=== PATIENT | female | born 1970 | race Two or more races ===

== ENCOUNTER 2017-04-10 09:12 | Emergency (ER) | payer OTHER ==
[2017-04-10 09:21] VITALS: BP 135/91; PULSE 103; TEMP 98.8; BMI 26.6
[2017-04-10] MEDS ORDERED: KETOROLAC TROMETHAMINE 60 MG/2 ML VIAL IM ONE (10:53)
--- NOTE | 2017-04-10 10:58 | PDOC ---
"History of Present Illness - General Chief Complaint: Back Pain Stated Complaint: BACK PAIN Time Seen by Provider: 04/10/17 10:14 History Source: Patient Exam Limitations: No Limitations - History of Present Illness Initial Comments: 04/10/17 12:33 Chief complaint: Left lateral lower back pain radiating down left legs 4 days History of present illness: Patient is a 46-year-old female with a history of xsi-ovlriji-[id number] diabetes and lower back problems. Patient reports for the last 4 days she has had left lower back pain that radiates down her left leg with tingling along her left lateral hip area. Patient denies any incontinency or any saddle anesthesia. Patient reports going to the chiropractor 3 times without relief of pain. Patient took ibuprofen last night without relief of pain and nothing today for pain. Patient denies any heavy lifting or exercise recently. Occurred: reports: other (4 days ) Severity: reports: severe (left sided radiates down left leg ) Pain Location: reports: back (left sided radiates down left leg ), lower extremity (left leg) Method of Injury: Yes: unknown Modifying Factors: improves with: None Loss of Consciousness: no loss of consciousness Associated Symptoms (Fall): other (tingling left lateral thigh ) Past History - Past Medical History Allergies/Adverse Reactions: Allergies Allergy/AdvReac Type Severity Reaction Status Date / Time centimizoil Allergy Uncoded 04/10/17 09:14 Home Medications: Ambulatory Orders Glipizide [Glipizide ER] 5 mg PO DAILY 04/10/17 Metformin HCl [Glucophage] 1,000 mg PO BID 04/10/17 Oxycodone HCl/Acetaminophen [Percocet 5-325 mg Tablet] 1 tab PO Q6H PRN #12 tablet MDD 4 04/10/17 Diabetes: Yes Other medical history: sciatica - Immunization History Immunization Up to Date: Yes - Psycho/Social/Smoking Cessation Hx Anxiety: No Suicidal Ideation: No Smoking History: Never smoked Have you smoked in the past 12 months: No Information on smoking cessation initiated: No Hx Alcohol Use: No Drug/Substance Use Hx: No Substance Use Type: None Review of Systems - Review of Systems Able to Perform ROS?: Yes Constitutional: No: Symptoms Reported HEENTM: No: Symptoms Reported Respiratory: No: Symptoms reported Cardiac (ROS): No: Symptoms Reported ABD/GI: No: Symptoms Reported : No: Symptoms Reported Musculoskeletal: Yes: Back Pain (left sided radiates down left leg ) Integumentary: No: Symptoms Reported Neurological: No: Symptoms reported *Physical Exam - Vital Signs Last Vital Signs Temp Pulse Resp BP Pulse Ox 98.8 F 103 H 18 135/91 100 04/10/17 09:15 04/10/17 09:15 04/10/17 09:15 04/10/17 09:15 04/10/17 09:15 - Physical Exam General Appearance: Yes: Appropriately Dressed Respiratory/Chest: positive: Lungs Clear, Normal Breath Sounds. negative: Chest Tender, Respiratory Distress Cardiovascular: positive: Regular Rhythm, Regular Rate, S1, S2 Vascular Pulses: Doralis-Pedis (L): 4+ Musculoskeletal: positive: Normal Inspection, Decreased Range of Motion (from waist ), Other (left paraspinal muscle tenderness lumbar). negative: CVA Tenderness, CVA Tenderness (R), CVA Tenderness (L), Muscle Spasm, Vertebral Tenderness Extremity: positive: Normal Capillary Refill, Normal Inspection. negative: Normal Range of Motion (decreased left leg ) Integumentary: positive: Normal Color Neurologic: positive: Normal Response, Respond to painful stimul (left leg ), Other (+ SLR at 30 degrees left ). negative: Motor Strength 5/5 (motor/ strenght left 4/4), Numbness, Sensory Deficit (left leg ) Deep Tendon Reflexes: Ankle (L): 4+, Knee (R): 4+ ED Treatment Course - RADIOLOGY Radiology Studies Ordered: Category Date Time Status SPINE-LUMBAR SACRAL [RAD] Stat Radiology 04/10/17 10:54 Ordered Medical Decision Making - Medical Decision Making 04/10/17 12:36 Patient is a 46-year-old female with a history of rtv-[id number]-qtttkxysx diabetes and lower back problems. Patient reports for the last 4 days she has had left lower back pain that radiates down her left leg with tingling along her left lateral hip area. Patient denies any incontinency or any saddle anesthesia. Patient reports going to the chiropractor 3 times without relief of pain. Patient took ibuprofen last night without relief of pain and nothing today for pain. Patient denies any heavy lifting or exercise recently. Left lumbar radiculopathy PLAN: toradol 60 mg IM now ortho to follow up with xray lumbar sacral spine degenerative changes mild with minimal wedging percocet 5mg/325 mg po every 6 hrs prn severe pain [employer]GER checked Patient Search Multi-Patient Search Reports Drug Listing Designation My LOBITO Numbers Data Detail Level: Printer-Friendly View Extended View Confidential Drug Utilization Report Search Terms: bridger vera, 1970 Search Date: 04/10/2017 12:42:08 PM The Drug Utilization Report below displays all of the controlled substance prescriptions, if any, that your patient has filled in the last twelve months. The information displayed on this report is compiled from pharmacy submissions to the Department, and accurately reflects the information as submitted by the pharmacies. This report was requested by: Lorene Castellanos | Reference #: [id number] 04/10/17 12:42 04/10/17 13:26 04/10/17 13:27 04/10/17 13:27 *DC/Admit/Observation/Transfer Diagnosis at time of Disposition: Lumbar pain with radiation down left leg - Discharge Dispostion Disposition: HOME Condition at time of disposition: Stable - Prescriptions Prescriptions: Oxycodone HCl/Acetaminophen [Percocet 5-325 mg Tablet] 1 tab PO Q6H PRN #12 tablet MDD 4 PRN Reason: Pain - Referrals Referrals: Adeline Jackson NP [Primary Care Provider] - Deonte Duckworth MD [Staff Physician] - - Patient Instructions Additional Instructions: FOLLOW UP WITH ORTHOPEDIST SOON POSSIBLE AVOID ANY STRENOUS ACTIVITIES OR EXERCISE RETURN TO EMERGENCY ROOM IF ANY NUMBNESS OF LEGS OR PRIVATE AREA OR NEW SYMPTOMS DEVELOP PATIENT VOICED UNDERSTANDING OF DISCHARGE INSTRUCTIONS AND ALL QUESTIONS WERE ANSWERED"
== END 2017-04-10 12:48 | disposition home or self-care (01) ==
LOC: JERFT 09:12 → JER 09:12 → JERFT 12:48
PROC: 3E0233Z Introduction of Anti-inflammatory into Muscle, Percutaneous Approach (ICD-10-PCS; principal; 2017-04-10)
DX: M54.16 Radiculopathy, lumbar region (principal); E11.9 Type 2 diabetes mellitus without complications; Z79.84 Long term (current) use of oral hypoglycemic drugs
CPT/HCPCS: 72100-TC; 99281-25

== ENCOUNTER 2017-04-11 09:18 | Emergency (ER) | payer OTHER ==
[2017-04-11 09:34] VITALS: BP 139/82; PULSE 84; TEMP 98.7; BMI 26.6
--- NOTE | 2017-04-11 09:45 | PDOC ---
History of Present Illness - General History Source: Patient Exam Limitations: No Limitations - History of Present Illness Initial Comments: 04/11/17 10:46 Patient is a 46 year old female with a significant past medical history of Diabetes who presents to the ED with pain in left lower extremity and left hip pain for 4 days. Patient reports pain beginning 4 days prior constantly, with intensity increasing last night before coming in to the ED. She reports slight numbness in her left lower extremity. Patient reports being diagnosed with sciatica 3 years prior by a chiropractor. She states being prescribed percocets for the pain but stopped taking them secondary to nausea and vomiting. Patient was given Toradol IM at [facility] yesterday for pain. She reports not being compliant with diabetic medication secondary to nausea and vomiting. Denies any new injury. Denies dysuria, or constipation. Denies any fever, chills. Denies any chest pain, SOB, dizziness. Denies any other symptoms. Allergies: N/A PMD: Dr. Jackson <Antony Mcguire - Last Filed: 04/11/17 10:46> <Giana Arias - Last Filed: 04/11/17 11:00> - General Chief Complaint: Pain, Acute Stated Complaint: REVISIT, PAIN Time Seen by Provider: 04/11/17 09:44 Past History <Antony Mcguire - Last Filed: 04/11/17 10:46> - Past Medical History Diabetes: Yes - Immunization History Immunization Up to Date: Yes - Psycho/Social/Smoking Cessation Hx Anxiety: No Suicidal Ideation: No Smoking History: Never smoked Have you smoked in the past 12 months: No Hx Alcohol Use: No Drug/Substance Use Hx: No Substance Use Type: None <Giana Arias - Last Filed: 04/11/17 11:00> - Past Medical History Allergies/Adverse Reactions: Allergies Allergy/AdvReac Type Severity Reaction Status Date / Time No Known Drug Allergies Allergy Verified 04/11/17 10:30 Home Medications: Ambulatory Orders Glipizide [Glipizide ER] 5 mg PO DAILY 04/10/17 Metformin HCl [Glucophage] 1,000 mg PO BID 04/10/17 Cyclobenzaprine HCl [Flexeril 10 mg] 10 mg PO BID PRN #60 tablet 04/11/17 Ibuprofen [Motrin -] 600 mg PO TID PRN #15 tablet 04/11/17 Review of Systems - Review of Systems Able to Perform ROS?: Yes Comments:: 04/11/17 10:47 GENERAL/CONSTITUTIONAL: No fever or chills. No weakness. HEAD, EYES, EARS, NOSE AND THROAT: No change in vision. No ear pain or discharge. No sore throat. GASTROINTESTINAL: No nausea, vomiting, diarrhea or constipation. GENITOURINARY: No dysuria, frequency, or change in urination. CARDIOVASCULAR: No chest pain or shortness of breath. RESPIRATORY: No cough, wheezing, or hemoptysis. MUSCULOSKELETAL: + Paraspinal pain. +Left buttock pain. No joint or muscle swelling or pain. No neck or back pain. SKIN: No rash NEUROLOGIC: No headache, vertigo, loss of consciousness, or change in strength/ sensation. ENDOCRINE: No increased thirst. No abnormal weight change. HEMATOLOGIC/LYMPHATIC: No anemia, easy bleeding, or history of blood clots. ALLERGIC/IMMUNOLOGIC: No hives or skin allergy. All Other Systems: Reviewed and Negative <Antony Mcguire - Last Filed: 04/11/17 10:46> *Physical Exam - Vital Signs Last Vital Signs Temp Pulse Resp BP Pulse Ox 98.7 F 84 19 139/82 99 04/11/17 09:31 04/11/17 09:31 04/11/17 09:31 04/11/17 09:31 04/11/17 09:31 - Physical Exam Comments: 04/11/17 10:48 GENERAL: Awake, alert, and fully oriented, in no acute distress HEAD: No signs of trauma EYES: PERRLA, EOMI, sclera anicteric, conjunctiva clear ENT: Auricles normal inspection, hearing grossly normal, nares patent, oropharynx clear without exudates. Moist mucosa NECK: Normal ROM, supple, no lymphadenopathy, JVD, or masses LUNGS: Breath sounds equal, clear to auscultation bilaterally. No wheezes, and no crackles HEART: Regular rate and rhythm, normal S1 and S2, no murmurs, rubs or gallops ABDOMEN: Soft, nontender, normoactive bowel sounds. No guarding, no rebound. No masses EXTREMITIES: + Positive straight left leg raise test at 10 degrees. Negative right leg raise test. + Left paraspinal and left buttock reproduced pain. Normal range of motion, no edema. No clubbing or cyanosis. No cords, erythema, NEUROLOGICAL: Cranial nerves II through XII grossly intact. Normal speech, normal gait. No limping. SKIN: Warm, Dry, normal turgor, no rashes or lesions noted. <Antony Mcguire - Last Filed: 04/11/17 10:46> - Vital Signs Last Vital Signs Temp Pulse Resp BP Pulse Ox 98.7 F 84 19 139/82 99 04/11/17 09:31 04/11/17 09:31 04/11/17 09:31 04/11/17 09:31 04/11/17 09:31 <Giana Arias - Last Filed: 04/11/17 11:00> ED Treatment Course - ADDITIONAL ORDERS Additional order review: Laboratory Results 04/11/17 04/11/17 10:27 10:13 POC Glucometer [id number] Urine HCG, Qual Negative 04/11/17 10:27 POC Glucometer [id number] - Medications Given in the ED: ED Medications Discontinued Medications Generic Name Dose Route Start Last Admin Trade Name Alconq PRN Reason Stop Dose Admin Acetaminophen 975 mg 04/11/17 10:06 04/11/17 10:23 Tylenol - PO 04/11/17 10:07 975 mg ONCE ONE Administration Ketorolac Tromethamine 60 mg 04/11/17 10:06 04/11/17 10:22 Toradol Injection - IM 04/11/17 10:07 60 mg ONCE ONE Administration Ondansetron HCl 4 mg 04/11/17 10:06 04/11/17 10:23 Zofran Odt - SL 04/11/17 10:07 4 mg ONCE ONE Administration <Antony Mcguire - Last Filed: 04/11/17 10:46> Medical Decision Making - Medical Decision Making 04/11/17 10:18 46yo female with hx of sciatica with acute flare up of sciatica x 4 days. -given toradol yesterday with relief of pain, however returns today secondary to vomiting from percocet and unable to tolerate po -no signs/symptoms of caude equina - no urinary or fecal incontinence, no muscle weakness, no sensory changes -no midline pain -xray from yesterday reviewed. -will remedicate and reassess -pt follows with chiropractor, will need to see ortho for further eval and poss PT as outpt for back pain. -will check UA given hx of DM and now with mild suprapubic ttp, though doubt pyelo as cause of pain bc no CVA ttp and pt is nontoxic/no fevers 04/11/17 10:52 re-eval: pt ambulatory with a steady gait. sleeping, easily arousable. denies pain. no paresthesias or sensation changes. able to give urine sample. Has a referral to see ortho from yesterday. Will give Rx for muscle relaxer and motrin for home. 04/11/17 10:58 pt stable for d/c to home. Pt took own DM meds while in the ED - metformin and glipizide. Pt tolerated PO intake in the ED. <Giana Arias - Last Filed: 04/11/17 11:00> *DC/Admit/Observation/Transfer - Attestations Scribe Attestion: 04/11/17 10:49 Documentation prepared by Antony Mcguire, acting as medical practice assistant for Giana Arias DO, MD. <Antony Mcguire - Last Filed: 04/11/17 10:46> - Discharge Dispostion Admit: No - Attestations Physician Attestion: 04/11/17 10:21 I, Dr. Giana Arias DO, attest that this document has been prepared under my direction and personally reviewed by me in its entirety. I further attest, that it accurately reflects all work, treatment, procedures and medical decision -making performed by me. <Giana Arias - Last Filed: 04/11/17 11:00> Diagnosis at time of Disposition: Low back pain Qualifiers: Chronicity: unspecified Back pain laterality: left Sciatica presence: unspecified whether sciatica present Qualified Code(s): M54.5 - Low back pain - Discharge Dispostion Disposition: HOME Condition at time of disposition: Stable - Prescriptions Prescriptions: Cyclobenzaprine HCl [Flexeril 10 mg] 10 mg PO BID PRN #60 tablet PRN Reason: Back Pain Ibuprofen [Motrin -] 600 mg PO TID PRN #15 tablet PRN Reason: Lower Back Pain - Referrals Referrals: Adeline Jackson NP [Primary Care Provider] - Pro Fierro MD [Staff Physician] - - Patient Instructions Printed Discharge Instructions: DI for Low Back Pain Additional Instructions: Please take all meds as prescribed. Please do not drive or operate heavy machinery while taking flexeril. Please return to the ED with any further concerns. Please follow up with your PMD and make an appointment to see orthopedics.
[2017-04-11] MEDS ORDERED: LIDOCAINE 5% TOPICAL PATCH TP ONE (10:06)
[2017-04-11] MEDS ORDERED: ONDANSETRON *ODT* 4 MG TABLET SL ONE (10:06)
[2017-04-11] MEDS ORDERED: ACETAMINOPHEN 325 MG TABLET (FP) PO ONE (10:06)
[2017-04-11] MEDS ORDERED: KETOROLAC TROMETHAMINE 60 MG/2 ML VIAL IM ONE (10:06)
[2017-04-11 10:34] LABS: URINE APPEARANCE CLEAR; URINE BILIRUBIN NEGATIVE (NEGATIVE); URINE BLOOD NEGATIVE (NEGATIVE); URINE COLOR LTYELLOW; URINE GLUCOSE (UA) 1+ (NEGATIVE); URINE KETONE NEGATIVE (NEGATIVE); URINE LEUK ESTERASE NEGATIVE (NEGATIVE); URINE NITRITE NEGATIVE (NEGATIVE); URINE PROTEIN NEGATIVE (NEGATIVE); URINE UROBILINOGEN NEGATIVE mg/dL (0.2-1.0)
[2017-04-11] MEDS ORDERED: LIDOCAINE PATCH REMOVAL MC SCH (22:00)
== END 2017-04-11 11:05 | disposition home or self-care (01) ==
LOC: JER 09:18
PROC: 3E0233Z Introduction of Anti-inflammatory into Muscle, Percutaneous Approach (ICD-10-PCS; principal; 2017-04-11)
DX: M54.5 Low back pain (principal); E11.9 Type 2 diabetes mellitus without complications; Z79.84 Long term (current) use of oral hypoglycemic drugs
CPT/HCPCS: 81003; 84703; 96372; 99283-25

== ENCOUNTER 2018-04-20 16:53 | Emergency (ER) | payer OTHER ==
[2018-04-20 16:59] VITALS: BP 130/85; PULSE 85; TEMP 97.8; BMI 26.6
[2018-04-20] MEDS ORDERED: MECLIZINE HCL 25 MG TABLET (FP) PO ONE (17:51)
--- NOTE | 2018-04-20 17:54 | PDOC ---
History of Present Illness - General Chief Complaint: Lightheaded Stated Complaint: DIZZY, NAUSEA, RT EAR DISCOMFORT Time Seen by Provider: 04/20/18 17:46 - History of Present Illness Initial Comments: 47-year-old female with a past medical history significant for diabetes presents for evaluation of dizziness times one day. She states the dizziness started yesterday while she was in the shower she does have associated intermittent vomiting. She also states her dizziness is positional. She has no prior problems like this in the past. 04/20/18 17:52 Past History - Past Medical History Allergies/Adverse Reactions: Allergies Allergy/AdvReac Type Severity Reaction Status Date / Time No Known Drug Allergies Allergy Verified 04/20/18 16:59 Home Medications: Ambulatory Orders Glipizide [Glipizide ER] 5 mg PO DAILY 04/10/17 Metformin HCl [Glucophage] 1,000 mg PO BID 04/10/17 Meclizine HCl [Antivert -] 25 mg PO DAILY #30 tablet 04/20/18 COPD: No DVT: No Diabetes: Yes - Immunization History Immunization Up to Date: Yes - Suicide/Smoking/Psychosocial Hx Smoking History: Never smoked Have you smoked in the past 12 months: No Information on smoking cessation initiated: Yes Hx Alcohol Use: No Drug/Substance Use Hx: No Substance Use Type: None Review of Systems - Review of Systems ABD/GI: Yes: Nausea, Vomiting Neurological: Yes: Dizziness All Other Systems: Reviewed and Negative *Physical Exam - Vital Signs Last Vital Signs Temp Pulse Resp BP Pulse Ox 97.8 F 85 18 130/85 98 04/20/18 16:56 04/20/18 16:56 04/20/18 16:56 04/20/18 16:56 04/20/18 16:56 - Physical Exam Comments: HEAD: NC/AT EYES: Conjuntiva clear Ears: Canals and TM's normal NOSE: No d/c THROAT: Moist mucous membrances, oral pharanx clear, uvula midline NECK: Supple without adenopathy CARDIAC: S1 S2 LUNGS: CTA Full and Equal breath sounds ABDOMEN: Soft NT ND MS: Full ROM in all joints without edema NEUROLOGIC: No gross sensory or motor deficits, NVID SKIN: Normal color and temperature no lesions or rashes 04/20/18 17:53 Medical Decision Making - Medical Decision Making 04/20/18 18:46 Dizziness improved *DC/Admit/Observation/Transfer Diagnosis at time of Disposition: Vertigo - Discharge Dispostion Disposition: HOME Condition at time of disposition: Improved Decision to Admit order: No - Referrals Referrals: Stan Rodgers [Non Staff, Medical] - - Patient Instructions Printed Discharge Instructions: Vertigo, Benign Paroxysmal Positional Vertigo, DI for Vertigo Additional Instructions: Take the medication as directed. Please follow-up with the primary care physician. I recommended one for you. Return to the emergency room should symptoms worsen or go unresolved. - Post Discharge Activity
[2018-04-20] MEDS ORDERED: MECLIZINE HCL 25 MG TABLET (FP) ONE (17:56)
== END 2018-04-20 19:16 | disposition home or self-care (01) ==
LOC: JERFT 16:53 → JER 16:53 → JERFT 19:16
DX: R42 Dizziness and giddiness (principal); E11.9 Type 2 diabetes mellitus without complications
CPT/HCPCS: 99281-25

== ENCOUNTER 2019-10-19 06:31 | Emergency (ER) | payer OTHER ==
--- NOTE | 2019-10-19 07:31 | PDOC ---
History of Present Illness - General Stated Complaint: SORE THROAT, BODYACHES Time Seen by Provider: 10/19/19 07:30 - History of Present Illness Initial Comments: 10/19/19 07:59 49 y/o F hx of DM and sciatica presenting to ED because she woke up this morning with a runny nose , body aches and sore throat. She is works in [employer] an lives in [place] and is concerned about her symptoms. She has fitch no fevers, chills, cough or difficulty breathing at home. She has not recently travelled or knowingly had contact with someone who has. Patient denies headache vision change, palpitations, cough, wheezing, sick contacts, recent travel, shortness of breath Past History - Past Medical History Allergies/Adverse Reactions: Allergies Allergy/AdvReac Type Severity Reaction Status Date / Time No Known Drug Allergies Allergy Verified 04/20/18 16:59 Home Medications: Ambulatory Orders Glipizide [Glipizide ER] 5 mg PO DAILY 04/10/17 Metformin HCl [Glucophage] 1,000 mg PO BID 04/10/17 Meclizine HCl [Antivert -] 25 mg PO DAILY #30 tablet 04/20/18 COPD: No DVT: No Diabetes: Yes - Immunization History Immunization Up to Date: Yes - Psycho Social/Smoking Cessation Hx Smoking History: Never smoked Have you smoked in the past 12 months: No Hx Alcohol Use: No Drug/Substance Use Hx: No Substance Use Type: None Review of Systems - Review of Systems Comments:: 10/19/19 08:03 GENERAL/CONSTITUTIONAL: No fever or chills. No weakness. HEAD, EYES, EARS, NOSE AND THROAT: No change in vision. No ear pain or discharge. sore throat. CARDIOVASCULAR: No chest pain or shortness of breath RESPIRATORY: No cough, wheezing, or hemoptysis. GASTROINTESTINAL: No nausea, vomiting, diarrhea or constipation. GENITOURINARY: No dysuria, frequency, or change in urination. MUSCULOSKELETAL: No joint or muscle swelling or pain. No neck or back pain. SKIN: No rash NEUROLOGIC: No headache, vertigo, loss of consciousness, or change in strength/sensation. ENDOCRINE: No increased thirst. No abnormal weight change *Physical Exam - Physical Exam 10/19/19 08:03 GENERAL: Awake, alert, and fully oriented, in no acute distress HEAD: No signs of trauma, normocephalic, atraumatic EYES: PERRLA, EOMI, sclera anicteric, conjunctiva clear ENT: Auricles normal inspection, hearing grossly normal, nares patent, oropharynx clear without exudates. Moist mucosa NECK: Normal ROM, supple, no lymphadenopathy, JVD, or masses LUNGS: No distress, speaks full sentences, clear to auscultation bilaterally HEART: Regular rate and rhythm, normal S1 and S2, no murmurs, rubs or gallops, peripheral pulses normal and equal bilaterally. ABDOMEN: Soft, nontender, normoactive bowel sounds. No guarding, no rebound. No masses EXTREMITIES : Normal inspection, Normal range of motion, no edema. No clubbing or cyanosis NEUROLOGICAL: Cranial nerves II through XII grossly intact. Normal speech, n ormal gait, no focal sensorimotor deficits SKIN: Warm, Dry, normal turgor, no rashes or lesions noted Medical Decision Making - Medical Decision Making 10/19/19 08:04 49 y/o F hx of DM and sciatica presenting to ED because she woke up this morning with a runny nose , body aches and sore throat. pt not showing signs/symptoms indicative for screening for COVID-19( sick contacts, fevers, shortness of breath, cough) pt expresses wish to travel at this time to [place] and advised that this may not be the best time to do so Instructed to come back if she has high fevers,chills,shortness of breath, coughing. Discharge - Discharge Information Problems reviewed: Yes Clinical Impression/Diagnosis: Sore throat, Runny nose Condition: Stable - Admission No - Follow up/Referral Referrals: Rohit Steve II, DO [Primary Care Provider] - - Patient Discharge Instructions Additional Instructions: You were seen in the ER for runny nose and body aches you do not have a fever, chills, shortness of breath, cough or difficulty breathing RETURN TO THE ER: if you develop fevers, chills, shortness of breath cough or if you have contact with anyone who tests positive for COVID-19 or has come in contact with someone who does. - Post Discharge Activity
[2019-10-19 07:40] VITALS: BP 149/79; PULSE 91; BMI 26.1
[2019-10-19 07:51] VITALS: TEMP 98.3
--- NOTE | 2019-10-19 08:09 | PDOC ---
Attending Attestation - Resident Resident Name: Crow Kaminski - HPI HPI: 10/19/19 08:03 Pt presents to the Ed complaining of runny nose and sore throat. 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 Denies fever, cough or shortness of breath. - Physicial Exam PE: 10/19/19 08:09 Agree with resident exam. Patient is alert and oriented and in no acute distress. Throat has no erythema or exudate. - Medical Decision Making 10/19/19 08:22 Pt presents to the ED complaining of sorethroat and runny nose. Presents for concerns about restrepo virus. Explained to patient that she does not meet criteria for restrepo virus testing. will discharge home with instructions to call PCP for questions.
== END 2019-10-19 09:43 | disposition home or self-care (01) ==
LOC: JER 06:31
DX: J02.9 Acute pharyngitis, unspecified (principal); R09.89 Other specified symptoms and signs involving the circulatory and respiratory systems; E11.9 Type 2 diabetes mellitus without complications; Z79.84 Long term (current) use of oral hypoglycemic drugs
CPT/HCPCS: 99282-25

== ENCOUNTER 2020-08-24 09:35 | Emergency (ER) | payer OTHER ==
[2020-08-24 09:53] VITALS: BP 131/81; PULSE 89; TEMP 97.6; BMI 26.4
[2020-08-24] MEDS ORDERED: KETOROLAC TROMETHAMINE 30 MG/1 ML VIAL IM ONE (10:32)
[2020-08-24] MEDS ORDERED: KETOROLAC TROMETHAMINE 30 MG/1 ML VIAL ONE (10:33)
== END 2020-08-24 13:00 | disposition home or self-care (01) ==
LOC: JER 09:35
PROC: 3E0233Z Introduction of Anti-inflammatory into Muscle, Percutaneous Approach (ICD-10-PCS; principal; 2020-08-24)
DX: M54.12 Radiculopathy, cervical region (principal)
CPT/HCPCS: 72040-TC; 99284-25

== ENCOUNTER 2023-03-07 07:47 | Emergency (ER) | payer OTHER ==
[2023-03-07 08:03] VITALS: BP 113/80; PULSE 94; RESP 16; TEMP 98.7; BMI 25.3
[2023-03-07 10:03] LABS: BASO % 0.8 % (0-2.0); EOS % 3.6 % (0-4.5); HEMATOCRIT 42.3 % (32.4-45.2); HEMOGLOBIN 14.6 GM/dL (10.7-15.3); LYMPH % 40.7 % (8-40); MCH 33.3 pg (25.7-33.7); MCHC 34.6 g/dl (32.0-36.0); MEAN CELL VOLUME 96.4 fl (80-96); MEAN PLT VOLUME 7.7 fl (7.5-11.1); MONO % 6.4 % (3.8-10.2); NEUT % 48.5 % (42.8-82.8); PH,URINE 5.5 (5.0-8.0); PLATELET COUNT 341 10^3/uL (134-434); RBC 4.38 M/mm3 (3.60-5.2); RDW 13.5 % (11.6-15.6); URINE APPEARANCE CLEAR; URINE BILIRUBIN NEGATIVE (NEGATIVE); URINE COLOR YELLOW; URINE GLUCOSE (UA) 3+ (NEGATIVE); URINE KETONE TRACE (NEGATIVE); URINE LEUK ESTERASE NEGATIVE (NEGATIVE); URINE NITRITE NEGATIVE (NEGATIVE); URINE PROTEIN NEGATIVE (NEGATIVE); URINE UROBILINOGEN 0.2 mg/dL (0.2-1.0)
[2023-03-07 10:21] LABS: POTASSIUM 4.5 mmol/L (3.5-5.1)
[2023-03-07 10:22] LABS: CALCIUM 8.9 mg/dL (8.5-10.1)
[2023-03-07 10:23] LABS: ALBUMIN 3.8 g/dl (3.4-5.0); BLOOD UREA NITROGEN 15.8 mg/dL (7-18)
[2023-03-07 10:26] LABS: CREATININE 0.9 mg/dL (0.55-1.3)
[2023-03-07 10:28] LABS: BILIRUBIN,TOTAL 0.8 mg/dL (0.2-1); TOT PROT 7.8 g/dl (6.4-8.2)
== END 2023-03-07 11:42 | disposition home or self-care (01) ==
LOC: JER 07:47
DX: H57.89 Other specified disorders of eye and adnexa (principal); J30.2 Other seasonal allergic rhinitis
CPT/HCPCS: 36415; 80053; 81003; 85025; 87086; 87186; 99283-25

== ENCOUNTER 2023-04-26 13:05 | Emergency (ER) | payer SELFPAY ==
[2023-04-26 13:13] VITALS: BP 135/82; PULSE 91; RESP 19; TEMP 98.3; BMI 25.0
[2023-04-26] MEDS ORDERED: SODIUM CHLORIDE 0.9% 500 ML INFUS.BAG IV ONE (14:07)
[2023-04-26] MEDS ORDERED: FAMOTIDINE 20 MG/50 ML IVPB 20 MG/50 ML MG IVPB ONE ×2 (14:07→14:21)
[2023-04-26] MEDS ORDERED: DEXAMETHASONE SOD PHOSPHATE 10 MG/1 ML VIAL IVPUSH ONE (14:07)
[2023-04-26] MEDS ORDERED: DEXAMETHASONE SOD PHOSPHATE 10 MG/1 ML VIAL ONE (14:21)
[2023-04-26 15:06] LABS: BASO % 0.7 % (0-2.0); EOS % 2.6 % (0-4.5); HEMATOCRIT 45.7 % (32.4-45.2); HEMOGLOBIN 15.6 GM/dL (10.7-15.3); LYMPH % 40.1 % (8-40); MCHC 34.1 g/dl (32.0-36.0); MEAN CELL VOLUME 96.9 fl (80-96); MEAN PLT VOLUME 7.8 fl (7.5-11.1); MONO % 6.6 % (3.8-10.2); PLATELET COUNT 451 10^3/uL (134-434); RBC 4.72 M/mm3 (3.60-5.2); RDW 14.1 % (11.6-15.6); WHITE BLOOD COUNT 8.2 K/mm3 (4.0-10.0)
[2023-04-26 15:35] LABS: POTASSIUM 4.6 mmol/L (3.5-5.1)
[2023-04-26 15:37] LABS: ALBUMIN 4.4 g/dl (3.4-5.0); BLOOD UREA NITROGEN 16.3 mg/dL (7-18); CALCIUM 9.9 mg/dL (8.5-10.1)
[2023-04-26 15:40] LABS: CREATININE 0.8 mg/dL (0.55-1.3)
[2023-04-26 15:42] LABS: BILIRUBIN,TOTAL 1.1 mg/dL (0.2-1); TOT PROT 8.4 g/dl (6.4-8.2)
== END 2023-04-26 16:18 | disposition home or self-care (01) ==
LOC: JERFT 13:05
PROC: 3E033GC Introduction of Other Therapeutic Substance into Peripheral Vein, Percutaneous Approach (ICD-10-PCS; principal; 2023-04-26)
PROC: 3E033GC Introduction of Other Therapeutic Substance into Peripheral Vein, Percutaneous Approach (ICD-10-PCS; 2023-04-26)
DX: L29.9 Pruritus, unspecified (principal); R10.9 Unspecified abdominal pain; T50.8X5A Adverse effect of diagnostic agents, initial encounter
CPT/HCPCS: 36415; 80053; 85025; 99284-25; J1100